=== PATIENT | male | born 1965 | race African-American/Black ===

== ENCOUNTER 2019-12-11 09:24 | Emergency (ER) | payer MEDICAID, OTHER ==
--- NOTE | 2019-12-11 10:26 | RAD ---
EXAM: 3 views of the lumbosacral spine HISTORY: Low back pain COMPARISON: None FINDINGS: 3 views of the lumbosacral spine shows normal height and alignment of the vertebral bodies without fracture or subluxation. Mild to moderate degenerative changes are seen in the lower lumbosacral spine with intervertebral disc space narrowing and osteophyte formation. Mild bilateral p osterior facet arthrosis is seen at L4/5 and L5/S1. The sacroiliac joints are unremarkable. IMPRESSION: Degenerative changes of the lumbar spine without acute osseous abnormality.
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
== END 2019-12-11 11:19 | disposition home or self-care (01) ==
LOC: ERS 09:24
DX: S16.1XXA Strain of muscle, fascia and tendon at neck level, initial encounter (principal); S70.02XA Contusion of left hip, initial encounter; M54.5 Low back pain; I10 Essential (primary) hypertension; Z79.899 Other long term (current) drug therapy; V69.9XXA Occupant (driver) (passenger) of heavy transport vehicle injured in unspecified traffic accident, initial encounter
CPT/HCPCS: 72100

== ENCOUNTER 2022-08-19 19:21 | Emergency (ER) | payer OTHER | END 2022-08-19 21:10 | disposition home or self-care (01) | LOC: ERS 19:21 | DX: S20.214A Contusion of middle front wall of thorax, initial encounter (principal); I10 Essential (primary) hypertension; W20.8XXA Other cause of strike by thrown, projected or falling object, initial encounter; Y92.69 Other specified industrial and construction area as the place of occurrence of the external cause; Z79.899 Other long term (current) drug therapy | CPT/HCPCS: 71046 ==

== ENCOUNTER 2022-09-14 11:01 | Outpatient (CLI) | payer OTHER | END 2022-09-14 11:02 | disposition home or self-care (01) | LOC: BICCT 11:01 | PROVIDERS: ATTEND Nurse Practitioner Family | DX: S29.9XXA Unspecified injury of thorax, initial encounter (principal) | CPT/HCPCS: 71260; 82565 ==

== ENCOUNTER 2022-10-26 19:06 | Emergency (ER) | payer OTHER, SELFPAY | END 2022-10-26 19:23 | disposition left against medical advice (07) | LOC: ERS 19:06 | DX: Z53.21 Procedure and treatment not carried out due to patient leaving prior to being seen by health care provider (principal) ==